=== PATIENT | female | born 1940 | race Caucasian/White ===

== ENCOUNTER 2018-05-15 08:30 | Day surgery (SDC) | payer MEDICARE, OTHER ==
[~2018-05-15] VITALS: Ht 162.6 cm; Wt 73.6 kg
[~2018-05-15 08:30] MED LIST: AMIT25; CEPH500 PO; GABA300 PO; PRED10 PO
== END 2018-05-15 11:05 | disposition home or self-care (01) ==
LOC: ORSCSDS 08:30
PROVIDERS: Internal Medicine Gastroenterology
PROC: 0DBL8ZX Excision of Transverse Colon, Via Natural or Artificial Opening Endoscopic, Diagnostic (ICD-10-PCS; principal; 2018-05-15 09:45)
PROC: 3E0H8GC Introduction of Other Therapeutic Substance into Lower GI, Via Natural or Artificial Opening Endoscopic (ICD-10-PCS; principal; 2018-05-15 09:45)
DX: Z12.11 Encounter for screening for malignant neoplasm of colon (principal); Z86.010 Personal history of colon polyps; K57.30 Diverticulosis of large intestine without perforation or abscess without bleeding; D12.3 Benign neoplasm of transverse colon; K62.1 Rectal polyp
CPT/HCPCS: J1980; J7120

== ENCOUNTER 2018-05-31 17:45 | Emergency (ER) | payer MEDICARE, OTHER ==
[~2018-05-31] VITALS: Ht 165.1 cm; Wt 74.8 kg
[2018-05-31] MEDS ORDERED: Prednisone50 MG PO (18:32)
[2018-05-31] MEDS ORDERED: EPIPEN 2-P0.3 MG/0.3 IM (18:32)
[2018-05-31] MEDS ORDERED: BENADRYL25 MG PO (18:32)
[2018-05-31] MEDS ORDERED: Pepcid20 MG PO (18:32)
== END 2018-05-31 20:41 | disposition home or self-care (01) ==
LOC: ER 17:45
DX: T63.461A Toxic effect of venom of wasps, accidental (unintentional), initial encounter (principal); Z88.2 Allergy status to sulfonamides; Z79.899 Other long term (current) drug therapy; Z79.52 Long term (current) use of systemic steroids
CPT/HCPCS: 36415; 96374; 96375; 99283-25; J1100; J1200; J3490

== ENCOUNTER 2019-11-12 08:32 | Day surgery (SDC) | payer MEDICARE, OTHER ==
[~2019-11-12] VITALS: Ht 167.6 cm; Wt 77.2 kg
[~2019-11-12 08:32] MED LIST changes: +BENADRYL25 MG PO; +CBD OIL; +DOXE10; +EPIPEN 2-P0.3 MG/0.3 IM; +FISH OIL 500 M1 EAC1; +Pepcid20 MG PO; +Prednisone50 MG PO; +TUMERIC; +VITAMIN D310 MC1
== END 2019-11-12 11:09 | disposition home or self-care (01) ==
LOC: ORSCSDS 08:32
PROVIDERS: Internal Medicine Gastroenterology
PROC: 0DBK8ZX Excision of Ascending Colon, Via Natural or Artificial Opening Endoscopic, Diagnostic (ICD-10-PCS; principal; 2019-11-12 09:45)
PROC: 0DBL8ZX Excision of Transverse Colon, Via Natural or Artificial Opening Endoscopic, Diagnostic (ICD-10-PCS; principal; 2019-11-12 09:45)
PROC: 0DBM8ZX Excision of Descending Colon, Via Natural or Artificial Opening Endoscopic, Diagnostic (ICD-10-PCS; principal; 2019-11-12 09:45)
PROC: 0DBN8ZX Excision of Sigmoid Colon, Via Natural or Artificial Opening Endoscopic, Diagnostic (ICD-10-PCS; principal; 2019-11-12 09:45)
DX: Z86.010 Personal history of colon polyps (principal); K57.30 Diverticulosis of large intestine without perforation or abscess without bleeding; D12.2 Benign neoplasm of ascending colon; D12.3 Benign neoplasm of transverse colon; D12.4 Benign neoplasm of descending colon; E78.5 Hyperlipidemia, unspecified; Z79.899 Other long term (current) drug therapy
CPT/HCPCS: 88305; J2704; J7120

== ENCOUNTER 2019-12-28 14:03 | Emergency (ER) | payer MEDICARE, OTHER ==
[~2019-12-28] VITALS: Ht 165.1 cm; Wt 74.8 kg
[2019-12-28 14:54] LABS: BASOPHILS ABSOLUTE AUTO 0.09 K/mm3 (0.00-0.23); BASOPHILS PERCENT AUTO 1 % (0-2); EOSINOPHILS ABSOLUTE AUTO 0.25 K/mm3 (0.00-0.68); EOSINOPHILS PERCENT AUTO 4 % (0-6); Hematocrit 39.6 % (33.0-51.0); Hemoglobin 13.1 g/dL (11.5-16.0); IMMATURE GRAN ABSOLUTE AUTO 0.02 K/mm3 (0.00-0.10); IMMATURE GRAN PERCENT AUTO 0 % (0-1); LYMPHOCYTES ABSOLUTE AUTO 2.23 K/mm3 (0.84-5.20); LYMPHOCYTES PERCENT AUTO 35 % (21-46); MONOCYTES ABSOLUTE AUTO 0.49 K/mm3 (0.16-1.47); MONOCYTES PERCENT AUTO 8 % (4-13); Mean Corpuscular HGB 28.6 pg (26.0-34.0); Mean Corpuscular HGB Conc 33.1 g/dL (31.5-36.5); Mean Corpuscular Volume 87 fL (80-100); Mean Platelet Volume 10.9 fL (9.1-12.4); NEUTROPHILS ABSOLUTE AUTO 3.33 K/mm3 (1.96-9.15); NEUTROPHILS PERCENT AUTO 52 % (41-73); Platelet Count 271 K/mm3 (150-400); RDW Coefficient Variation 14.6 % (11.7-14.2); RDW Standard Deviation 46.4 fL (35.1-46.3); Red Blood Cell Count 4.58 M/mm3 (3.80-5.20); White Blood Cell Count 6.41 K/mm3 (4.00-11.30)
[2019-12-28 15:15] LABS: Alanine Aminotransfer (ALT/SGP 29 U/L (12-78); Albumin, Blood 4.1 g/dL (3.4-5.0); Albumin/Globulin Ratio 1.1 (0.8-1.8); Alk Phos 50 U/L (50-136); Anion Gap 7 mmol/L (6-16); Aspartate Aminotrans (AST/SGOT 18 U/L (12-37); Bilirubin, Total 0.2 mg/dL (0.1-1.0); Blood Urea Nitrogen 17 mg/dL (8-24); Bun/Creatinine Ratio 22.1 (12.0-20.0); CO2, Blood 22 mmol/L (21-32); Calcium, Blood 9.1 mg/dL (8.5-10.1); Chloride, Blood 107 mmol/L (98-108); Creatinine, Blood 0.77 mg/dL (0.40-1.00); Globulin, Blood 3.8 g/dL (2.2-4.0); Glomerular Filtration Rate >60 (60-); Glucose, Blood 132 mg/dL (70-99); Potassium, Blood 4.2 mmol/L (3.5-5.5); Sodium, Blood 136 mmol/L (136-145); Total Protein, Blood 7.9 g/dL (6.4-8.2); Troponin I <0.015 ng/mL (0.000-0.040)
[2019-12-28 16:02] LABS: Source, Urine Catheter
[2019-12-28 16:05] LABS: Bilirubin, Urine Neg (Neg); Blood, Urine Neg (Neg); Glucose Qualitative, Urine Neg (Neg); Ketones, Urine Neg (Neg); Leukocyte Esterase, Urine Neg (Neg); Nitrite, Urine Neg (Neg); Protein, Urine Neg (Neg); Urobilinogen, Urine NORM (Normal); pH, Urine 6.5 (5.0-8.0)
[2019-12-28 16:21] LABS: Appearance, Urine Clear (Clear); Color, Urine Pale Yellow (P-Yellow)
== END 2019-12-28 16:44 | disposition home or self-care (01) ==
LOC: ER 14:03
PROVIDERS: Physician Assistant
DX: F41.9 Anxiety disorder, unspecified (principal); Z88.2 Allergy status to sulfonamides; Z88.8 Allergy status to other drugs, medicaments and biological substances; Z79.899 Other long term (current) drug therapy
CPT/HCPCS: 36415; 71046; 80053; 81003; 84443; 84484; 85025; 93005; 93010; 99284-25

== ENCOUNTER 2021-12-24 12:08 | Emergency (ER) | payer MEDICARE, OTHER ==
[~2021-12-24] VITALS: Ht 165.1 cm; Wt 72.6 kg
[2021-12-24] MEDS ORDERED: Voltaren100 GM TOP (15:15)
== END 2021-12-24 15:28 | disposition home or self-care (01) ==
LOC: ER 12:08
DX: M79.10 Myalgia, unspecified site (principal); Z88.2 Allergy status to sulfonamides
CPT/HCPCS: 71101; 99283-25

== ENCOUNTER 2023-06-15 15:38 | Emergency (ER) | payer MEDICARE, OTHER ==
[~2023-06-15] VITALS: Ht 167.6 cm; Wt 70.3 kg
[~2023-06-15 15:38] MED LIST changes: +BACLOFEN5 M1 PO; +Crestor20 MG PO; +FLUO10 PO; +IRBE75 PO; +PREG50 PO; +Voltaren100 GM TOP
[2023-06-15 16:25] LABS: BASOPHILS ABSOLUTE AUTO 0.07 K/mm3 (0.00-0.23); BASOPHILS PERCENT AUTO 1 % (0-2); EOSINOPHILS ABSOLUTE AUTO 0.35 K/mm3 (0.00-0.68); EOSINOPHILS PERCENT AUTO 5 % (0-6); Hematocrit 35.2 % (33.0-51.0); Hemoglobin 11.7 g/dL (11.5-16.0); IMMATURE GRAN ABSOLUTE AUTO 0.02 K/mm3 (0.00-0.10); IMMATURE GRAN PERCENT AUTO 0 % (0-1); LYMPHOCYTES PERCENT AUTO 26 % (21-46); MONOCYTES ABSOLUTE AUTO 0.52 K/mm3 (0.16-1.47); MONOCYTES PERCENT AUTO 7 % (4-13); Mean Corpuscular HGB 27.2 pg (26.0-34.0); Mean Corpuscular HGB Conc 33.2 g/dL (31.5-36.5); Mean Corpuscular Volume 82 fL (80-100); Mean Platelet Volume 11.5 fL (9.1-12.4); NEUTROPHILS ABSOLUTE AUTO 4.23 K/mm3 (1.96-9.15); NEUTROPHILS PERCENT AUTO 61 % (41-73); Platelet Count 254 K/mm3 (150-400); RDW Coefficient Variation 14.1 % (11.7-14.2); RDW Standard Deviation 41.5 fL (35.1-46.3); White Blood Cell Count 6.99 K/mm3 (4.00-11.30)
[2023-06-15 16:45] LABS: Albumin, Blood 3.9 g/dL (3.4-5.0); Albumin/Globulin Ratio 1.1 (0.8-1.8); Bilirubin, Total 0.6 mg/dL (0.1-1.0); Bun/Creatinine Ratio 30.1 (12.0-20.0); Calcium, Blood 8.8 mg/dL (8.5-10.1); Creatinine, Blood 1.23 mg/dL (0.40-1.00); Globulin, Blood 3.7 g/dL (2.2-4.0); Potassium, Blood 4.2 mmol/L (3.5-5.5); Total Protein, Blood 7.6 g/dL (6.4-8.2)
[2023-06-15] MEDS ORDERED: IRBE150 PO (18:36)
[2023-06-15 19:02] VITALS: BP 159/60
[2023-06-15 20:50] LABS: Source, Urine Voided
[2023-06-15 20:56] LABS: Appearance, Urine Clear (Clear); Bilirubin, Urine Neg (Neg); Blood, Urine Neg (Neg); Glucose Qualitative, Urine Neg (Neg); Ketones, Urine Neg (Neg); Leukocyte Esterase, Urine 1+ (Neg); Nitrite, Urine Neg (Neg); Protein, Urine Neg (Neg); Specific Gravity, Urine 1.015 (1.003-1.022); Urobilinogen, Urine NORM (Normal)
[2023-06-15 21:08] LABS: Color, Urine Pale Yellow (P-Yellow)
[2023-06-15 21:10] LABS: Bacteria Few /hpf; Red Blood Cells, Urine Not Seen /hpf (0-2); Squamous Epithelial Cells Rare /hpf (Few)
[2023-06-16 13:09] LABS: IRON BIND.CAP.(TIBC) 287 ug/dL (250-450); IRON SATURATION 25 % (15-55); IRON, SERUM 71 ug/dL (27-139); UIBC 216 ug/dL (118-369)
== END 2023-06-15 21:40 | disposition home or self-care (01) ==
LOC: ER 15:38
PROVIDERS: Emergency Medicine; Physician Assistant
DX: R00.1 Bradycardia, unspecified (principal); Z88.2 Allergy status to sulfonamides; Z88.8 Allergy status to other drugs, medicaments and biological substances; Z79.899 Other long term (current) drug therapy
CPT/HCPCS: 80053; 81001; 83880; 84484; 85025; 93005; 93010; 99284-25

== ENCOUNTER 2024-09-18 04:38 | Day surgery (SDC) | payer MEDICARE, OTHER ==
[~2024-09-18 04:38] MED LIST changes: +Acetaminophen 325 MG TABLET PO SCH; +Dexamethasone Sod Phos 10 MG/ML 1ML VIAL IV SCH; +DiphenhydrAMINE HCL 25 MG Cap PO SCH; +DiphenhydrAMINE HCl 50 MG/ML 1ML Vial IV PRN; +IMMUN GLOB G(IGG)/PRO/IGA 0-50 100 ML IV SCH; +IRBE150 PO; +MethylPREDNISolone Sod Succ 125 MG Vial IV SCH
[2024-09-18 14:32] VITALS: BP 110/61
[2024-09-18] MEDS ORDERED: MIRTAZAPINE7.5 M1 PO (14:56)
[2024-09-18 15:15] LABS: BASOPHILS ABSOLUTE AUTO 0.07 K/mm3 (0.00-0.23); BASOPHILS PERCENT AUTO 1 % (0-2); EOSINOPHILS ABSOLUTE AUTO 0.12 K/mm3 (0.00-0.68); EOSINOPHILS PERCENT AUTO 2 % (0-6); Hematocrit 35.4 % (33.0-51.0); Hemoglobin 12.3 g/dL (11.5-16.0); IMMATURE GRAN ABSOLUTE AUTO 0.02 K/mm3 (0.00-0.10); IMMATURE GRAN PERCENT AUTO 0 % (0-1); LYMPHOCYTES ABSOLUTE AUTO 1.76 K/mm3 (0.84-5.20); LYMPHOCYTES PERCENT AUTO 24 % (21-46); MONOCYTES ABSOLUTE AUTO 0.69 K/mm3 (0.16-1.47); MONOCYTES PERCENT AUTO 9 % (4-13); Mean Corpuscular HGB 28.2 pg (26.0-34.0); Mean Corpuscular HGB Conc 34.7 g/dL (31.5-36.5); Mean Corpuscular Volume 81 fL (80-100); Mean Platelet Volume 10.7 fL (9.1-12.4); NEUTROPHILS ABSOLUTE AUTO 4.71 K/mm3 (1.96-9.15); NEUTROPHILS PERCENT AUTO 64 % (41-73); Platelet Count 299 K/mm3 (150-400); RDW Coefficient Variation 13.9 % (11.7-14.2); RDW Standard Deviation 40.9 fL (35.1-46.3); Red Blood Cell Count 4.36 M/mm3 (3.80-5.20); White Blood Cell Count 7.37 K/mm3 (4.00-11.30)
[2024-09-18 15:40] LABS: Creatinine, Blood 0.87 mg/dL (0.40-1.00)
[2024-09-18 15:46] VITALS: BP 130/90
[2024-09-18 16:08] VITALS: BP 153/78
[2024-09-18 16:43] VITALS: BP 132/84
[2024-09-18 17:02] VITALS: BP 141/86
[2024-09-18 17:15] VITALS: BP 153/85
[2024-09-20 01:25] LABS: IMMUNOGLOBULIN G 760 mg/dL (768-1632)
== END 2024-09-18 17:37 | disposition home or self-care (01) ==
LOC: ATC 04:38
PROVIDERS: Psychiatry & Neurology Neurology
DX: G61.81 Chronic inflammatory demyelinating polyneuritis (principal)
CPT/HCPCS: 82565; 82784; 84520; 85025; 86880; 96365; 96366; 96375; 96415; A9270; J1100; J1459

== ENCOUNTER 2024-09-19 01:01 | Day surgery (SDC) | payer MEDICARE, OTHER ==
[~2024-09-19] VITALS: Wt 61.0 kg
[~2024-09-19 01:01] MED LIST changes: -Acetaminophen 325 MG TABLET PO SCH; -Dexamethasone Sod Phos 10 MG/ML 1ML VIAL IV SCH; -DiphenhydrAMINE HCL 25 MG Cap PO SCH; -DiphenhydrAMINE HCl 50 MG/ML 1ML Vial IV PRN; -IMMUN GLOB G(IGG)/PRO/IGA 0-50 100 ML IV SCH; +MIRTAZAPINE7.5 M1 PO; -MethylPREDNISolone Sod Succ 125 MG Vial IV SCH
[2024-09-19] MEDS ORDERED: IMMUN GLOB G(IGG)/PRO/IGA 0-50 100 ML IV SCH (06:00)
[2024-09-19] MEDS ORDERED: DiphenhydrAMINE HCL 25 MG Cap PO SCH (07:10)
[2024-09-19] MEDS ORDERED: Acetaminophen 325 MG TABLET PO SCH (07:10)
[2024-09-19] MEDS ORDERED: Dexamethasone Sod Phos 10 MG/ML 1ML VIAL IV SCH (07:20)
[2024-09-19 14:40] VITALS: BP 115/67
[2024-09-19 15:24] VITALS: BP 115/87
[2024-09-19 15:35] VITALS: BP 113/83
[2024-09-19 15:55] VITALS: BP 150/67
[2024-09-19 16:09] VITALS: BP 138/63
== END 2024-09-19 17:04 | disposition home or self-care (01) ==
LOC: ATC 01:01
DX: G61.81 Chronic inflammatory demyelinating polyneuritis (principal)
CPT/HCPCS: 96365; 96366; 96375; A9270; J1100; J1459

== ENCOUNTER 2024-09-20 03:27 | Day surgery (SDC) | payer MEDICARE, OTHER ==
[~2024-09-20 03:27] MED LIST changes: +MIRT15 PO; -MIRTAZAPINE7.5 M1 PO
[2024-09-20] MEDS ORDERED: IMMUN GLOB G(IGG)/PRO/IGA 0-50 100 ML IV SCH (06:00)
[2024-09-20] MEDS ORDERED: DiphenhydrAMINE HCL 25 MG Cap PO SCH (07:10)
[2024-09-20] MEDS ORDERED: Acetaminophen 325 MG TABLET PO SCH (07:10)
[2024-09-20] MEDS ORDERED: Dexamethasone Sod Phos 10 MG/ML 1ML VIAL IV SCH (07:15)
[2024-09-20 15:59] VITALS: BP 145/78
[2024-09-20 16:46] VITALS: BP 135/81
[2024-09-20 16:53] VITALS: BP 142/87
[2024-09-20 17:02] VITALS: BP 147/78
[2024-09-20 17:18] VITALS: BP 137/82
== END 2024-09-20 17:58 | disposition home or self-care (01) ==
LOC: ATC 03:27
DX: G61.81 Chronic inflammatory demyelinating polyneuritis (principal); Z91.030 Bee allergy status; Z88.2 Allergy status to sulfonamides; Z88.8 Allergy status to other drugs, medicaments and biological substances
CPT/HCPCS: 96365; A9270; J1100; J1459

== ENCOUNTER 2024-09-21 02:57 | Day surgery (SDC) | payer MEDICARE, OTHER ==
[~2024-09-21 02:57] MED LIST changes: -MIRT15 PO; +MIRTAZAPINE7.5 M1 PO
[2024-09-21] MEDS ORDERED: IMMUN GLOB G(IGG)/PRO/IGA 0-50 100 ML IV SCH (06:00)
[2024-09-21] MEDS ORDERED: Acetaminophen 325 MG TABLET PO SCH (07:20)
[2024-09-21] MEDS ORDERED: DiphenhydrAMINE HCL 25 MG Cap PO SCH (07:20)
[2024-09-21] MEDS ORDERED: Dexamethasone Sod Phos 10 MG/ML 1ML VIAL IV SCH (07:25)
[2024-09-21 15:15] VITALS: BP 155/71
[2024-09-21 15:59] VITALS: BP 126/93
[2024-09-21 16:14] VITALS: BP 110/93
[2024-09-21 16:31] VITALS: BP 158/78
[2024-09-21 16:48] VITALS: BP 167/93
[2024-09-21 17:01] VITALS: BP 164/100
== END 2024-09-21 17:20 | disposition home or self-care (01) ==
LOC: ATC 02:57
DX: G61.81 Chronic inflammatory demyelinating polyneuritis (principal)
CPT/HCPCS: 96365; 96366; 96375; A9270; J1100; J1459

== ENCOUNTER 2024-09-22 00:11 | Day surgery (SDC) | payer MEDICARE, OTHER ==
[2024-09-22] MEDS ORDERED: IMMUN GLOB G(IGG)/PRO/IGA 0-50 100 ML IV SCH (06:00)
[2024-09-22] MEDS ORDERED: Acetaminophen 325 MG TABLET PO SCH (11:00)
[2024-09-22] MEDS ORDERED: Dexamethasone Sod Phos 10 MG/ML 1ML VIAL IV SCH (11:00)
[2024-09-22] MEDS ORDERED: DiphenhydrAMINE HCl 50 MG/ML 1ML Vial IV SCH (11:00)
[2024-09-22] MEDS ORDERED: DiphenhydrAMINE HCL 25 MG Cap PO SCH (13:30)
[2024-09-22 14:18] VITALS: BP 153/87
[2024-09-22 14:53] VITALS: BP 153/85
[2024-09-22 15:11] VITALS: BP 135/86
[2024-09-22 15:29] VITALS: BP 154/86
[2024-09-22 15:49] VITALS: BP 156/91
[2024-09-22 16:10] VITALS: BP 155/87
== END 2024-09-22 16:30 | disposition home or self-care (01) ==
LOC: ATC 00:11
DX: G61.81 Chronic inflammatory demyelinating polyneuritis (principal)
CPT/HCPCS: 96365; 96366; 96374; A9270; J1100; J1459

== ENCOUNTER 2024-09-25 16:38 | Inpatient (IN) | payer MEDICARE, OTHER ==
[~2024-09-25] VITALS: Ht 162.6 cm; Wt 61.2 kg
[2024-09-25 18:11] LABS: BASOPHILS ABSOLUTE AUTO 0.06 K/mm3 (0.00-0.23); BASOPHILS PERCENT AUTO 1 % (0-2); EOSINOPHILS ABSOLUTE AUTO 0.08 K/mm3 (0.00-0.68); EOSINOPHILS PERCENT AUTO 1 % (0-6); Hematocrit 38.1 % (33.0-51.0); Hemoglobin 13.1 g/dL (11.5-16.0); IMMATURE GRAN ABSOLUTE AUTO 0.02 K/mm3 (0.00-0.10); IMMATURE GRAN PERCENT AUTO 0 % (0-1); LYMPHOCYTES ABSOLUTE AUTO 2.07 K/mm3 (0.84-5.20); LYMPHOCYTES PERCENT AUTO 22 % (21-46); MONOCYTES ABSOLUTE AUTO 0.87 K/mm3 (0.16-1.47); MONOCYTES PERCENT AUTO 9 % (4-13); Mean Corpuscular HGB 28.3 pg (26.0-34.0); Mean Corpuscular HGB Conc 34.4 g/dL (31.5-36.5); Mean Corpuscular Volume 82 fL (80-100); Mean Platelet Volume 10.6 fL (9.1-12.4); NEUTROPHILS ABSOLUTE AUTO 6.48 K/mm3 (1.96-9.15); NEUTROPHILS PERCENT AUTO 68 % (41-73); Platelet Count 243 K/mm3 (150-400); RDW Coefficient Variation 14.3 % (11.7-14.2); RDW Standard Deviation 41.5 fL (35.1-46.3); Red Blood Cell Count 4.63 M/mm3 (3.80-5.20); White Blood Cell Count 9.58 K/mm3 (4.00-11.30)
[2024-09-25 18:31] LABS: Albumin, Blood 3.6 g/dL (3.4-5.0); Albumin/Globulin Ratio 0.7 (0.8-1.8); Bilirubin, Total 0.8 mg/dL (0.1-1.0); Bun/Creatinine Ratio 64.9 (12.0-20.0); Calcium, Blood 8.7 mg/dL (8.5-10.1); Creatinine, Blood 0.77 mg/dL (0.40-1.00); Globulin, Blood 5.5 g/dL (2.2-4.0); Magnesium, Blood 1.9 mg/dL (1.6-2.4); Potassium, Blood 4.3 mmol/L (3.5-5.5); Total Protein, Blood 9.1 g/dL (6.4-8.2)
[2024-09-25 21:15] LABS: Source, Urine Clean Catch
[2024-09-25 21:27] LABS: Appearance, Urine Clear (Clear); Bilirubin, Urine Neg (Neg); Blood, Urine Neg (Neg); Color, Urine Yellow (P-Yellow); Glucose Qualitative, Urine Neg (Neg); Ketones, Urine Neg (Neg); Leukocyte Esterase, Urine Neg (Neg); Nitrite, Urine Neg (Neg); Protein, Urine 1+ (Neg); Specific Gravity, Urine 1.025 (1.003-1.022); Urobilinogen, Urine NORM (Normal)
[2024-09-25] MEDS ORDERED: NS 1,000 ML IV SCH (21:40)
[2024-09-25 22:28] LABS: Influenza A, PCR NEGATIVE (NEGATIVE); Influenza B, PCR NEGATIVE (NEGATIVE); Resp Syncytial Virus, PCR NEGATIVE (NEGATIVE); SARS-Cov-2 (COVID-19) PCR, MMC NEGATIVE (NEGATIVE)
[2024-09-25] MEDS ORDERED: FLU VACC TS2024-25(6MOS UP)/PF 45 MCG/0.5 ML SYRINGE IM ONE (23:20)
[2024-09-25] MEDS ORDERED: Ondansetron HCl 2 MG / ML 2ML Vial IV PRN (23:20)
[2024-09-25] MEDS ORDERED: Acetaminophen 325 MG TABLET PO PRN (23:20)
[2024-09-25] MEDS ORDERED: Mirtazapine 15 MG SoluTab PO SCH (23:25)
[2024-09-26] MEDS ORDERED: PREG25 PO (00:08)
[2024-09-26] MEDS ORDERED: ROSUVASTATIN CA20 MG PO (00:09)
[2024-09-26] MEDS ORDERED: AMLO5 PO (00:09)
[2024-09-26] MEDS ORDERED: AMITRIPTYLINE H25 MG PO (00:10)
[2024-09-26 00:33] VITALS: BP 154/98
[2024-09-26 02:23] LABS: BASOPHILS ABSOLUTE AUTO 0.06 K/mm3 (0.00-0.23); BASOPHILS PERCENT AUTO 1 % (0-2); EOSINOPHILS ABSOLUTE AUTO 0.11 K/mm3 (0.00-0.68); EOSINOPHILS PERCENT AUTO 1 % (0-6); Hematocrit 36.8 % (33.0-51.0); Hemoglobin 12.3 g/dL (11.5-16.0); IMMATURE GRAN ABSOLUTE AUTO 0.08 K/mm3 (0.00-0.10); IMMATURE GRAN PERCENT AUTO 1 % (0-1); LYMPHOCYTES ABSOLUTE AUTO 2.54 K/mm3 (0.84-5.20); LYMPHOCYTES PERCENT AUTO 25 % (21-46); MONOCYTES ABSOLUTE AUTO 1.08 K/mm3 (0.16-1.47); MONOCYTES PERCENT AUTO 10 % (4-13); Mean Corpuscular HGB Conc 33.4 g/dL (31.5-36.5); Mean Corpuscular Volume 84 fL (80-100); Mean Platelet Volume 10.5 fL (9.1-12.4); NEUTROPHILS ABSOLUTE AUTO 6.51 K/mm3 (1.96-9.15); NEUTROPHILS PERCENT AUTO 63 % (41-73); Platelet Count 202 K/mm3 (150-400); RDW Coefficient Variation 14.1 % (11.7-14.2); RDW Standard Deviation 42.5 fL (35.1-46.3); Red Blood Cell Count 4.39 M/mm3 (3.80-5.20); White Blood Cell Count 10.38 K/mm3 (4.00-11.30)
[2024-09-26 02:52] LABS: Albumin, Blood 3.1 g/dL (3.4-5.0); Albumin/Globulin Ratio 0.6 (0.8-1.8); Bilirubin, Total 0.7 mg/dL (0.1-1.0); Bun/Creatinine Ratio 67.1 (12.0-20.0); Calcium, Blood 8.5 mg/dL (8.5-10.1); Creatinine, Blood 0.64 mg/dL (0.40-1.00); Globulin, Blood 4.8 g/dL (2.2-4.0); Magnesium, Blood 1.6 mg/dL (1.6-2.4); Potassium, Blood 3.9 mmol/L (3.5-5.5); Total Protein, Blood 7.9 g/dL (6.4-8.2)
--- NOTE | 2024-09-26 05:27 | NUR ---
SHIFT SUMMARY 84 YR F ADMITTED ON 09/26/24. DNR. WHEN PT ARRIVED TO THIS UNIT HER CODE STATUS WAS LISTED FULL CODE. HOWEVER, SHE WAS ACOOMPANIED BY HER AND DAUGHTER WHO BOTH STATED TO MYSELF, AND THE HOSPITALIST, THAT THE PT IS A DNR AND THEY HAVE A POLST AND ADVANCED DIRECTIVE BUT DID NOT HAVE THEM WITH THEM. HOSPITALIST STATED THAT THE RECORDS WOULD BE REQUESTED TODAY. PT CODE STATUS WAS CHANGED TO DNR IN OUR SYSTEM. PT IS VERY WEAK AND CONFUSED. PT STATES SHE HAS BEEN GETTING PROGRESSIVELY WEAKER OVER THE LAST YEAR. HE ALSO STATED THAT HE IS HAVING A VERY DIFFICULT TIME CARING FOR HER HIMSELF AND WOULD PREFER THAT SHE BE DISCHARGED TO SN[facility] THAN HOME SO THAT SHE CAN WORK WITH THERAPY TO GET STRONGER. PT STATES SHE IS TOO WEAK TO WALK BUT SHE HAS ATTEMPTED TO GET OUT OF BED ON HER OWN TWICE. BED ALARM IS ON FOR PT SAFETY. PT HAS A PUREWIK FOR INCONTINENCE AND TO AVOID GETTING HER UP AT THIS POINT.
[2024-09-26] MEDS ORDERED: OxyCODONE 5 mg/Acetamin 325 mg TABLET PO PRN (07:55)
[2024-09-26 07:58] VITALS: BP 155/77
[2024-09-26] MEDS ORDERED: Enoxaparin 40 MG/0.4 ML SYR SC SCH (09:00)
[2024-09-26] MEDS ORDERED: Apixaban 5 MG Tab PO SCH (15:00)
[2024-09-26] MEDS ORDERED: MULTI-VITAMIN1 EAC2 PO (16:47)
[2024-09-26] MEDS ORDERED: MAGNESIUM OXID500 MG PO (16:48)
[2024-09-26] MEDS ORDERED: THERA-D2000 UNIT PO (16:48)
--- NOTE | 2024-09-26 18:30 | NUR ---
SHIFT SUMMARY PATIENT ALERT AND INTERACTIVE BUT FLAT AND WITHDRAWN. PATIENT CONFUSED AND FORGETFUL BUT COOPERATIVE WITH CARE. PT AND OT EVALUATED PATIENT. PATIENT HAS WEAKNESS ON L SIDE BUT IS NOT NEW. PATIENT ABLE TO GET UP TO BSC WITH ONE PERSON ASSIST. RECORDS REQUEST COMPLETED.
[2024-09-26 20:01] VITALS: BP 127/90
[2024-09-26] MEDS ORDERED: Irbesartan 150 MG Tab PO SCH (21:00)
[2024-09-27 02:18] VITALS: BP 147/74
[2024-09-27 05:40] LABS: BASOPHILS ABSOLUTE AUTO 0.04 K/mm3 (0.00-0.23); BASOPHILS PERCENT AUTO 1 % (0-2); EOSINOPHILS ABSOLUTE AUTO 0.24 K/mm3 (0.00-0.68); EOSINOPHILS PERCENT AUTO 3 % (0-6); Hematocrit 36.5 % (33.0-51.0); Hemoglobin 12.2 g/dL (11.5-16.0); IMMATURE GRAN ABSOLUTE AUTO 0.02 K/mm3 (0.00-0.10); IMMATURE GRAN PERCENT AUTO 0 % (0-1); LYMPHOCYTES ABSOLUTE AUTO 2.29 K/mm3 (0.84-5.20); LYMPHOCYTES PERCENT AUTO 29 % (21-46); MONOCYTES ABSOLUTE AUTO 0.83 K/mm3 (0.16-1.47); MONOCYTES PERCENT AUTO 11 % (4-13); Mean Corpuscular HGB 27.9 pg (26.0-34.0); Mean Corpuscular HGB Conc 33.4 g/dL (31.5-36.5); Mean Corpuscular Volume 84 fL (80-100); Mean Platelet Volume 10.7 fL (9.1-12.4); NEUTROPHILS ABSOLUTE AUTO 4.42 K/mm3 (1.96-9.15); NEUTROPHILS PERCENT AUTO 56 % (41-73); Platelet Count 193 K/mm3 (150-400); RDW Standard Deviation 42.1 fL (35.1-46.3); Red Blood Cell Count 4.37 M/mm3 (3.80-5.20); White Blood Cell Count 7.84 K/mm3 (4.00-11.30)
[2024-09-27 06:14] LABS: Albumin, Blood 3.4 g/dL (3.4-5.0); Albumin/Globulin Ratio 0.7 (0.8-1.8); Bilirubin, Total 0.7 mg/dL (0.1-1.0); Bun/Creatinine Ratio 47.6 (12.0-20.0); Calcium, Blood 8.9 mg/dL (8.5-10.1); Creatinine, Blood 0.55 mg/dL (0.40-1.00); Globulin, Blood 4.9 g/dL (2.2-4.0); Potassium, Blood 3.8 mmol/L (3.5-5.5); Total Protein, Blood 8.3 g/dL (6.4-8.2)
[2024-09-27] MEDS ORDERED: Mag Sulfate 1 GM/D5% 100ML 100 ML IV STA (06:32)
--- NOTE | 2024-09-27 06:53 | NUR ---
SHIFT SUMMARY: MARGIE IS ALERT AND ORIENTED X 2-3. VSS, NO ACUTE EVENTS THIS SHIFT. PT RESTED FOR A FEW, SHORT PERIODS THIS SHIFT. SHE IS TOLERATING PO INTAKE WELL, REPORTS FEELING UNCOMFORTABLE, BUT DENIES PAIN. SHE IS A ONE-PERSON ASSIST TO THE BSC WITH THE FWW AND GAIT BELT. TELE IN PLACE, NO EVENTS OVERNIGHT. IV TO BILATERAL ARMS PATENT. PT HAS SAT UP AT THE SIDE OF THE BED FREQUENTLY THIS SHIFT AND IS CURRENTLY. CALL LIGHT IN REACH, BED ALARM ON, BED IN LOWEST POSITION. WILL GIVE REPORT TO DAY SHIFT RN.
[2024-09-27] MEDS ORDERED: NS 1,000 ML IV SCH (07:00)
[2024-09-27 07:18] VITALS: BP 146/89
[2024-09-27] MEDS ORDERED: DULoxetine HCL 60 MG Capsule DR PO SCH (09:00)
[2024-09-27] MEDS ORDERED: AmLODIPine Besylate 5 MG Tab PO SCH (09:00)
[2024-09-27] MEDS ORDERED: Magnesium Oxide 400 MG Tab PO SCH (09:00)
[2024-09-27] MEDS ORDERED: Rosuvastatin Calcium 10 MG Tab PO SCH (09:00)
--- NOTE | 2024-09-27 13:39 | NUR ---
CALLED TO SET UP MEETING WITH PROVIDER AND MYSELF FOR A GOALS OF CARE CONVERSATION. LEFT VM. PC WILL CONTINUE TO FOLLOW
--- NOTE | 2024-09-27 15:47 | NUR ---
PATIENT C/O ANXIETY "PANIC" STATES THE THE PATIENT AND SHORTNESS OF BREATH. O2% STABLE AT 96% ON ROOMAIR, NO CHEST PAIN, OR COUGH. DR. RIOS NOTIFIED.
[2024-09-27] MEDS ORDERED: HydrOXYzine Pamoate 25 MG Cap PO ONE (16:00)
--- NOTE | 2024-09-27 18:27 | NUR ---
SHIFT SUMMARY: PT IS A&Ox3-4; ANXIOUS AND RESPONSES WITH " I DON'T KNOW" TO MOST QUESTIONS. PATIENT DOES REPORT ANXIETY AND OCASSIONAL SHORTNESS OF BREATH. PATIENT'S OXYGEN SATURATION LEVELS 96%; PLACED 2 L NASAL CANNUAL ON TO SEE IF IT WOULD EASE ANXIETY, BUT NO BENEFIT. PATIENT DENIES PAIN OR NAUSEA. SHE HAS A POOR APPETITE; WILL START BELTCHING AFTER ATTEMPTING TO EAT; SPIT UP SALIVA, BUT CONTINUES TO DENY NAUSEA OR GI UPSET. ANTINAUSEA MEDICATIONS OFFERED, BUT DECLINED. PEPPERMINT AND SODA WATER PROVIDED; PATIENT STATES SODA WATER HELPS. PATIENT CONTINUES TO APPEAR ANXIOUS AND NOT SURE WHAT SHE WANTS. PATIENT'S AT BEDSIDE, PATIENT IS NOT APPEARING DISTRESSED, CALL LIGHT WITHIN REACH, PLAN OF CARE ONGOING.
[2024-09-27 19:49] VITALS: BP 168/77
[2024-09-28] MEDS ORDERED: LORazepam 0.5 MG Tab PO ONE (00:55)
[2024-09-28 02:04] VITALS: BP 158/79
--- NOTE | 2024-09-28 06:12 | NUR ---
Shift Summary PT AOx2 tongiht with heavy anxiety. She is unsure of where she is and the day/month. She was easily reoriented. Attempted non-pharmalogical methods to relieve anxiety: theraputic communication and distraction. Pt was unable to relax and I called the hospitalist who ordered a one time dose of 0.5 MG Ativan. 1.5 hours later pt was able to sleep well t/o the rest of the night. Early in the shift she accidentally pulled out her IV while repositioning herself, she still has one intact IV remaining. She was 2 assist to BSC this shift d/t significant weakness and lack of balance.
[2024-09-28 07:02] VITALS: BP 139/82
[2024-09-28] MEDS ORDERED: LORazepam 0.5 MG Tab PO PRN (07:05)
[2024-09-28 09:07] LABS: BASOPHILS ABSOLUTE AUTO 0.02 K/mm3 (0.00-0.23); BASOPHILS PERCENT AUTO 0 % (0-2); EOSINOPHILS ABSOLUTE AUTO 0.11 K/mm3 (0.00-0.68); EOSINOPHILS PERCENT AUTO 2 % (0-6); Hematocrit 30.2 % (33.0-51.0); Hemoglobin 10.5 g/dL (11.5-16.0); IMMATURE GRAN ABSOLUTE AUTO 0.03 K/mm3 (0.00-0.10); IMMATURE GRAN PERCENT AUTO 0 % (0-1); LYMPHOCYTES ABSOLUTE AUTO 1.27 K/mm3 (0.84-5.20); LYMPHOCYTES PERCENT AUTO 18 % (21-46); MONOCYTES ABSOLUTE AUTO 0.52 K/mm3 (0.16-1.47); MONOCYTES PERCENT AUTO 7 % (4-13); Mean Corpuscular HGB 28.2 pg (26.0-34.0); Mean Corpuscular HGB Conc 34.8 g/dL (31.5-36.5); Mean Corpuscular Volume 81 fL (80-100); Mean Platelet Volume 10.8 fL (9.1-12.4); NEUTROPHILS ABSOLUTE AUTO 5.18 K/mm3 (1.96-9.15); NEUTROPHILS PERCENT AUTO 73 % (41-73); Platelet Count 187 K/mm3 (150-400); RDW Coefficient Variation 13.4 % (11.7-14.2); Red Blood Cell Count 3.72 M/mm3 (3.80-5.20); White Blood Cell Count 7.13 K/mm3 (4.00-11.30)
[2024-09-28 09:26] LABS: Albumin, Blood 3.1 g/dL (3.4-5.0); Albumin/Globulin Ratio 0.7 (0.8-1.8); Bilirubin, Total 0.6 mg/dL (0.1-1.0); Bun/Creatinine Ratio 43.3 (12.0-20.0); Calcium, Blood 8.2 mg/dL (8.5-10.1); Creatinine, Blood 0.51 mg/dL (0.40-1.00); Globulin, Blood 4.2 g/dL (2.2-4.0); Magnesium, Blood 1.6 mg/dL (1.6-2.4); Potassium, Blood 4.2 mmol/L (3.5-5.5); Total Protein, Blood 7.3 g/dL (6.4-8.2)
[2024-09-28 15:30] VITALS: BP 134/59
--- NOTE | 2024-09-28 16:31 | NUR ---
SHIFT SUMMARY PT A&OX3/4, COOPERATIVE WITH PROCEDURES, ABLE TO MAKE NEEDS KNOWN. EXPRESSED ANXIETY EARLY SHIFT, MEDICATED PER EMAR. THIS RN TRANSFERRED PT TO CHAIR FOR LUNCH, SHE TRANSFERRED EASILY, STAYED IN THE CHAIR FOR ABOUT 2 HOURS, HAD TO UTILIZE 2 PERSON TRANSFER BACK TO BED. TELE LINES ON PT BACK KEPT COMING OFF AND READING FALSE REPORTS, NOTIFIED VIA VOICEMAIL. PULSE OX CONSISTANT AT 93/94%. USED COMMODE FOR ELIMATION. BED IN LOWEST POSITION, CALL LIGHT WITHIN REACH.
[2024-09-28] MEDS ORDERED: NS 1,000 ML IV SCH (17:00)
--- NOTE | 2024-09-28 17:13 | NUR ---
MET DAUGHTER IN THE HALLWAY. PROVIDED THERPUTIC LISTENING. RELAYED MY ROLE IN THE HOSPITAL AND EXPRESSED THAT I WOULD BE HER THROUGH THE WEEKEND TO PROVIDE SUPPORT NEEDED.
[2024-09-28 19:37] VITALS: BP 144/57
[2024-09-29 05:07] LABS: BASOPHILS ABSOLUTE AUTO 0.02 K/mm3 (0.00-0.23); BASOPHILS PERCENT AUTO 0 % (0-2); EOSINOPHILS PERCENT AUTO 2 % (0-6); Hematocrit 29.8 % (33.0-51.0); Hemoglobin 10.6 g/dL (11.5-16.0); IMMATURE GRAN ABSOLUTE AUTO 0.03 K/mm3 (0.00-0.10); IMMATURE GRAN PERCENT AUTO 1 % (0-1); LYMPHOCYTES ABSOLUTE AUTO 1.45 K/mm3 (0.84-5.20); LYMPHOCYTES PERCENT AUTO 23 % (21-46); MONOCYTES ABSOLUTE AUTO 0.71 K/mm3 (0.16-1.47); MONOCYTES PERCENT AUTO 11 % (4-13); Mean Corpuscular HGB Conc 35.6 g/dL (31.5-36.5); Mean Corpuscular Volume 82 fL (80-100); Mean Platelet Volume 11.4 fL (9.1-12.4); NEUTROPHILS ABSOLUTE AUTO 4.11 K/mm3 (1.96-9.15); NEUTROPHILS PERCENT AUTO 64 % (41-73); Platelet Count 169 K/mm3 (150-400); RDW Coefficient Variation 13.5 % (11.7-14.2); RDW Standard Deviation 39.4 fL (35.1-46.3); Red Blood Cell Count 3.65 M/mm3 (3.80-5.20); White Blood Cell Count 6.42 K/mm3 (4.00-11.30)
[2024-09-29 05:37] LABS: Albumin, Blood 2.9 g/dL (3.4-5.0); Albumin/Globulin Ratio 0.7 (0.8-1.8); Bilirubin, Total 0.5 mg/dL (0.1-1.0); Bun/Creatinine Ratio 33.9 (12.0-20.0); Calcium, Blood 8.1 mg/dL (8.5-10.1); Creatinine, Blood 0.47 mg/dL (0.40-1.00); Potassium, Blood 3.9 mmol/L (3.5-5.5); Total Protein, Blood 6.9 g/dL (6.4-8.2)
--- NOTE | 2024-09-29 05:41 | NUR ---
Shift Summary Pt is very weak, she requires a two person heavy assist to pivot to the BSC. She is unsteady and wobbly on her feet. She started the shift with bad anxiety but her sister was in the room so she was ok. Once her sister left she was sitting on the edge of the bed moaning, very anxious. I gave 0.5 mg PO Ativan which helped her relax enough that she could sleep. She rcvd 1L of NS at 1000 d/t her low sodium. She is on tele w a paced rythm at 60 bpm. Sodium lab this AM is 123 which is lower than 125 from yesterday morning. She is AOx2, cooperative with care.
[2024-09-29] MEDS ORDERED: NS 1,000 ML IV SCH (13:10)
[2024-09-29 16:14] VITALS: BP 174/94
--- NOTE | 2024-09-29 16:39 | NUR ---
SHIFT SUMMARY PT A&OX3, COOPERATIVE, ABLE TO MAKE NEEDS KNOWN, FAMILY AT BEDSIDE. PT WAS TRANSFERRED TO RECLINER FOR BREAKFAST AND TRANSFERRED BACK TO BED AFTER USING COMMODE. SHE WAS VERY TIRED AFTER BEING OUT OF BED FOR BREAKFAST. SHE REPORTED NEEDING TO USE BEDPAN TO VOID, WAS NOT ABLE TO VOID. GRAPHIC ILLUSTRATOR PERFORMED BLADDERSCAN AND THIS RN PROCEEDED TO STRAIGHT CATH PT. ABLE TO DRAIN APPROX 1150ML. NS RUNNING AT 200ML/HR CURRENTLY, ORDERED BY MD. BED ALARM ON, BED IN LOWEST POSITION, CALL LIGHT WITHIN REACH.
[2024-09-29 19:35] VITALS: BP 135/74
[2024-09-30 04:04] VITALS: BP 150/78
--- NOTE | 2024-09-30 05:38 | NUR ---
SHIFT SUMMARY PT OX 2-3 THROUGH NIGHT. FORGETFUL AT TIMES. BLADDER SCAN DONE POST VOID X2, STRAIGHT CATH X1 FOR SCAN OF 450ML. EARLY THIS AM, ASSISTED PT TO BSC WITH [id number] ASSIST. PT ABLE TO VOID 500ML WITH POST VOID RESIDUAL OF 119ML- STRAIGHT CATH NOT DONE WITH THIS RESULT. PT CALM MOST OF NIGHT. NO PRN MEDS NEEDED. PT DOES STATE THAT SHE FEELS PROGRESSIVELY WEAKER, ESPECIALLY LEFT SIDE. ASSISTED WITH POSITION CHANGES. SKIN REMAINS INTACT. PT ENCOURAGED TO DRINK HER ELECTROLYTE DRINK, AND AVOID PLAIN WATER SECONDARY TO HYPONATREMIA. PT SLEPT LONG INTERVALS. BED ALARM ON, SIDE RAILS UP X2, CALL LIGHT WITHIN REACH.
[2024-09-30 07:47] VITALS: BP 153/73
[2024-09-30 09:18] LABS: BASOPHILS ABSOLUTE AUTO 0.04 K/mm3 (0.00-0.23); BASOPHILS PERCENT AUTO 1 % (0-2); EOSINOPHILS ABSOLUTE AUTO 0.13 K/mm3 (0.00-0.68); EOSINOPHILS PERCENT AUTO 2 % (0-6); Hematocrit 33.5 % (33.0-51.0); Hemoglobin 12.1 g/dL (11.5-16.0); IMMATURE GRAN ABSOLUTE AUTO 0.02 K/mm3 (0.00-0.10); IMMATURE GRAN PERCENT AUTO 0 % (0-1); LYMPHOCYTES ABSOLUTE AUTO 1.32 K/mm3 (0.84-5.20); LYMPHOCYTES PERCENT AUTO 20 % (21-46); MONOCYTES ABSOLUTE AUTO 0.53 K/mm3 (0.16-1.47); MONOCYTES PERCENT AUTO 8 % (4-13); Mean Corpuscular HGB 28.6 pg (26.0-34.0); Mean Corpuscular HGB Conc 36.1 g/dL (31.5-36.5); Mean Corpuscular Volume 79 fL (80-100); NEUTROPHILS ABSOLUTE AUTO 4.65 K/mm3 (1.96-9.15); NEUTROPHILS PERCENT AUTO 70 % (41-73); Platelet Count 219 K/mm3 (150-400); RDW Coefficient Variation 13.3 % (11.7-14.2); RDW Standard Deviation 37.2 fL (35.1-46.3); Red Blood Cell Count 4.23 M/mm3 (3.80-5.20); White Blood Cell Count 6.69 K/mm3 (4.00-11.30)
[2024-09-30 09:37] LABS: Bun/Creatinine Ratio 29.6 (12.0-20.0); Calcium, Blood 8.7 mg/dL (8.5-10.1); Creatinine, Blood 0.44 mg/dL (0.40-1.00); Potassium, Blood 3.9 mmol/L (3.5-5.5)
[2024-09-30] MEDS ORDERED: NS 1,000 ML IV SCH ×2 (09:50→18:30)
--- NOTE | 2024-09-30 10:09 | NUR ---
PHYSICIAN CONTACT CONTACTED DR ROLDAN REGARDING SODIUM LEVEL THIS AM AT 121. UPDATED DOC ON INTERVENTIONS FOR LOW SODIUM YESTERDAY AND LEVELS FROM YESTERDAY. ORDERED 1 LITER NS TO BE GIVEN AT 150/HR. THIS WAS DONE, FLUIDS INFUSING.
[2024-09-30] MEDS ORDERED: Sodium Chloride 1 GM TAB PO SCH (13:25)
[2024-09-30 14:31] LABS: Calcium, Blood 8.5 mg/dL (8.5-10.1); Creatinine, Blood 0.61 mg/dL (0.40-1.00); Potassium, Blood 4.5 mmol/L (3.5-5.5)
--- NOTE | 2024-09-30 14:52 | NUR ---
SHIFT SUMMARY PATIENT IN ROOM THIS SHIFT, REQUIRES 2 MAX ASSIST PIVOT TRANSFER TO BSC AND CHAIR. IN CHAIR FOR MEALS AND THROUGHOUT SHIFT. PULSE OX IN PLACE, NO OXYGEN REQUIRED THIS SHIFT. NO ATIVAN GIVEN THIS SHIFT, NO C/O ANXIETY. NS INFUSING, NA+ TABLETS STARTED. A/O X 3-4. FAMILY IN ROOM THROUGHOUT SHIFT. NOT ALWAYS ABLE TO MAKE NEEDS KNOWN. CALL LIGHT IN REACH, BED AND CHAIR ALARM ON RESPECTIVELY. BLADDER SCANS PERFORMED PER ORDER. NO NEED TO CATH OF THIS NOTE. CARES ONGOING.
[2024-09-30 15:49] VITALS: BP 124/65
[2024-09-30 18:21] LABS: Bun/Creatinine Ratio 36.5 (12.0-20.0); Calcium, Blood 8.1 mg/dL (8.5-10.1); Creatinine, Blood 0.63 mg/dL (0.40-1.00); Potassium, Blood 4.5 mmol/L (3.5-5.5)
--- NOTE | 2024-09-30 18:28 | NUR ---
PHYSICIAN CONTACT CONTACTED DR GARIBAY REGARDING SODIUM OF 120. ORDERED NS INFUSION AND NA+ TO BE GIVEN TONIGHT RATHER THAN STARTING IN AM.
[2024-09-30] MEDS ORDERED: Sodium Chloride 1 GM TAB PO ONE (18:30)
[2024-09-30 19:55] VITALS: BP 120/71
[2024-10-01 02:43] VITALS: BP 152/71
--- NOTE | 2024-10-01 05:00 | NUR ---
SHIFT SUMMARY PT CONTINUES WITH DIFFICULTY VOIDING/ URINARY RETENTION. UNABLE TO VOID BY 2044- BLADDER SCAN AND STRAIGHT CATH DONE. JUST BEFORE 299, PT WITH LARGE INCONT. VOID, THEN VOIDED 500ML ON BEDPAN. POST VOID BLADDER SCAN WAS 643ML. PT WAS STRAIGHT CATH'D FOR 850ML. FREE WATER RESTRICTION NOTED. PT DRINKING LIQUID IV. IVF RUNNING THROUGH THE NIGHT. TELE WITH SINUS RHYTHYM WITH SOME A-PACING. PT TURNED AND REPOSITIONED. SKIN REMAINS INTACT. LEFT SIDE REMAINS VERY WEAK. BED ALARM ON, CALL LIGHT WITHIN REACH, SIDE RAILS UP X3.
[2024-10-01 05:05] LABS: BASOPHILS ABSOLUTE AUTO 0.05 K/mm3 (0.00-0.23); BASOPHILS PERCENT AUTO 1 % (0-2); EOSINOPHILS ABSOLUTE AUTO 0.15 K/mm3 (0.00-0.68); EOSINOPHILS PERCENT AUTO 2 % (0-6); Hematocrit 32.2 % (33.0-51.0); Hemoglobin 11.4 g/dL (11.5-16.0); IMMATURE GRAN ABSOLUTE AUTO 0.02 K/mm3 (0.00-0.10); IMMATURE GRAN PERCENT AUTO 0 % (0-1); LYMPHOCYTES ABSOLUTE AUTO 1.72 K/mm3 (0.84-5.20); LYMPHOCYTES PERCENT AUTO 23 % (21-46); MONOCYTES ABSOLUTE AUTO 0.85 K/mm3 (0.16-1.47); MONOCYTES PERCENT AUTO 11 % (4-13); Mean Corpuscular HGB 28.5 pg (26.0-34.0); Mean Corpuscular HGB Conc 35.4 g/dL (31.5-36.5); Mean Corpuscular Volume 81 fL (80-100); Mean Platelet Volume 11.5 fL (9.1-12.4); NEUTROPHILS ABSOLUTE AUTO 4.66 K/mm3 (1.96-9.15); NEUTROPHILS PERCENT AUTO 63 % (41-73); Platelet Count 203 K/mm3 (150-400); RDW Coefficient Variation 13.5 % (11.7-14.2); RDW Standard Deviation 38.8 fL (35.1-46.3); White Blood Cell Count 7.45 K/mm3 (4.00-11.30)
[2024-10-01 05:27] LABS: Albumin, Blood 3.2 g/dL (3.4-5.0); Albumin/Globulin Ratio 0.8 (0.8-1.8); Bilirubin, Total 0.4 mg/dL (0.1-1.0); Bun/Creatinine Ratio 36.2 (12.0-20.0); Calcium, Blood 8.4 mg/dL (8.5-10.1); Creatinine, Blood 0.47 mg/dL (0.40-1.00); Potassium, Blood 4.1 mmol/L (3.5-5.5); Total Protein, Blood 7.2 g/dL (6.4-8.2)
[2024-10-01 07:22] VITALS: BP 125/71
[2024-10-01] MEDS ORDERED: Sodium Chloride 1 GM TAB PO SCH (08:30)
--- NOTE | 2024-10-01 09:38 | NUR ---
PATIENT ATTEMPTED TO VOID USING THE BEDPAN [REFUSED TO GET UP], ZERO OUTPUT. BLADDERSCANNED HER; 652. NURSE INFORMED.
[2024-10-01 10:13] LABS: Source, Urine Foley catheter
[2024-10-01 10:23] LABS: Appearance, Urine Hazy (Clear); Bilirubin, Urine Neg (Neg); Blood, Urine 1+ (Neg); Color, Urine Yellow (P-Yellow); Glucose Qualitative, Urine Neg (Neg); Ketones, Urine Neg (Neg); Leukocyte Esterase, Urine 3+ (Neg); Nitrite, Urine Pos (Neg); Protein, Urine Neg (Neg); Urobilinogen, Urine NORM (Normal)
[2024-10-01 11:21] LABS: White Blood Cells, Urine TNTC /hpf (0-5)
[2024-10-01 11:22] LABS: Bacteria Many /hpf; Squamous Epithelial Cells Rare /hpf (Few)
[2024-10-01] MEDS ORDERED: CefTRIAXone Sodium 1,000 MG in NS 100 ML IV SCH (13:00)
[2024-10-01 15:09] LABS: Bun/Creatinine Ratio 23.6 (12.0-20.0); Calcium, Blood 8.2 mg/dL (8.5-10.1); Creatinine, Blood 0.55 mg/dL (0.40-1.00); Potassium, Blood 4.2 mmol/L (3.5-5.5)
--- NOTE | 2024-10-01 16:12 | NUR ---
SHIFT SUMMARY PT WOKE FOR SHIFT REPORT THIS AM. RESTING QUIETLY, IVF'S INFUSING PER EMAR FOR SODIUM LEVEL. PT HAVING URINARY RETENSION, REQUIRING FREQUENT STRAIGHT CATH'S; LAST ONE DONE JUST PRIOR TO START OF SHIFT. PT UNABLE TO VOID AGAIN LATER THIS AM, BECOMING RESTLESS AND AGITATED; BLADDER SCAN DONE SHOWING [address] EDMONDSON NOTIFIED; NEW ORDERS PLACED. 10:00 LEIJA CATH [address]ACED. UA OBTAINED AND SENT PER PROTOCOL. PT NOT WANTING TO EAT MUCH AT ALL TODAY, REFUSING BREAKFAST AND LUNCH. PT DID DRINK SOME ENSURE. PT/OT BOTH IN TO SEE PT TODAY. PT UP TO CHAIR AT BS VIA 2P MAX ASSIST. PT LATER RETURNED TO BED USING LIFT AND 2P ASSIST. PT IS VERY WEAK AND DOES NOT ASSIST OR PARTICIPATE MUCH AT ALL. PT'S SISTER IN EARLY AND SOON PT'S AND DAUGHTER AT BS WELL. CHILDCARE ADMINISTRATOR IN TO TALK WITH AND THEN DR GARIBAY HERE TO TALK WITH FAMILY. PT STATING THAT SHE WANTS HOSPICE AND WOULD LIKE TO , BUT FAMILY IS INCONSISTANT IN DECISIONS. PT ON FREE WATER RESTRICTION FOR SODIUM LEVEL. REQUESTED BED GOTTI FOR BM BUT JUST PASSING FLATUS. NO C/O PAIN. RESTING QUIETLY AT THIS TIME. CALL LT IN REACH. BED ALARM ON FOR SAFETY.
[2024-10-01 16:43] VITALS: BP 118/58
[2024-10-01] MEDS ORDERED: Polyethylene Glycol 3350 17 gm PO PRN (17:50)
[2024-10-01 19:31] VITALS: BP 124/61
[2024-10-02 04:14] VITALS: BP 134/62
[2024-10-02 04:57] LABS: Hematocrit 31.7 % (33.0-51.0); Mean Corpuscular HGB 28.2 pg (26.0-34.0); Mean Corpuscular HGB Conc 34.7 g/dL (31.5-36.5); Mean Corpuscular Volume 81 fL (80-100); Platelet Count 205 K/mm3 (150-400); RDW Coefficient Variation 13.8 % (11.7-14.2); RDW Standard Deviation 39.8 fL (35.1-46.3); White Blood Cell Count 7.79 K/mm3 (4.00-11.30)
--- NOTE | 2024-10-02 05:15 | NUR ---
SHIFT SUMMARY PT WITH INCREASED ANXIETY AT BEGINNING OF SHIFT. TYLENOL, THEN ATIVAN GIVEN WITH IMPROVEMENT TO ANXIETY- SEE EMAR. FREE WATER RESTRICTION MAINTAINED. IVF CONTINUES- NS@150ML/HR. LEIJA CATHETER DRAINING LARGE AMOUNTS OF URINE- MORE THAN 3 LITERS. LAB RESULTS PENDING. BED ALARM ON, CALL LIGHT WITHIN REACH, SIDE RAILS UP X3.
[2024-10-02 05:16] LABS: Bun/Creatinine Ratio 28.9 (12.0-20.0); Calcium, Blood 8.3 mg/dL (8.5-10.1); Creatinine, Blood 0.49 mg/dL (0.40-1.00); Potassium, Blood 4.2 mmol/L (3.5-5.5)
[2024-10-02 07:21] VITALS: BP 148/74
[2024-10-02 12:35] LABS: SARS-Cov-2 (COVID-19) PCR, MMC NEGATIVE (NEGATIVE)
[2024-10-02] MEDS ORDERED: ELIQUIS5 M2 PO (13:16)
[2024-10-02] MEDS ORDERED: Crestor40 MG PO (13:18)
[2024-10-02] MEDS ORDERED: Percocet 5-3251 EACH PO (13:18)
[2024-10-02] MEDS ORDERED: Cefpodoxime Pr100 MG PO (13:19)
[2024-10-02] MEDS ORDERED: SODCHL1 PO (13:19)
--- NOTE | 2024-10-02 15:12 | NUR ---
SHIFT SUMMARY PT AWAKE AT START OF SHIFT, DURING SHIFT REPORT. PT SITTING UP TO EOB, APPEARING WEAK AND TIRED. PT WANTING BACK IN BED BEFORE BREAKFAST. PT DECLINED TO EAT BREAKFAST BUT DID DRINK ALL OF HER ENSURE. PT'S DAUGHTER HERE SHORTLY AFTER BREAKFAST, BRINGING CLOTHES AND ADDITIONAL BLANKET. PT'S TO LATER MORNING. ENGRAVER COPPERPLATE IN TO TALK WITH PT AND FAMILY. PT TO D/C TO SNF TODAY; ALL ARRANAGEMENTS MADE. [facility] THEN REQUESTING TO REASSESS PT. D/C ON HOLD TODAY UNTIL TOMORROW. PT C/O BLOATING AND PASSING GAS. PT'S DAUGHTER DECLINED MIRALAX TODAY. PT LATER HAVING BM AND FEELING BETTR. PT'S DAUGHTER REMAINS AT BS. PT NOW RESTING QUIETLY IN BED. DENIES FURTHER NEEDS. CALL LT IN REACH. BED ALARM ON FOR SAFETY.
[2024-10-02 16:49] VITALS: BP 148/95
[2024-10-02] MEDS ORDERED: Sodium Chloride 1 GM TAB PO SCH (17:00)
[2024-10-02 19:53] VITALS: BP 156/63
[2024-10-03 02:01] VITALS: BP 142/86
--- NOTE | 2024-10-03 05:52 | NUR ---
SHIFT SUMMARY PT WITH ANXIETY AND RESTLESSNESS DURING THE NIGHT. REPOSITIONED FROM LYING ON LEFT SIDE TO SITTING AT EDGE OF BED THROUGH THE NIGHT. ATIVAN GIVEN X2 DOSES- SEE EMAR- WITH SOME RELIEF. LEIJA DRAINING CLEAR YELLOW URINE, CATHETER IS POSITIONAL AT TIMES. BED ALARM ON, CALL LIGHT WITHIN REACH, SIDE RAILS UP X3.
[2024-10-03 07:56] VITALS: BP 140/87
[2024-10-03 11:12] LABS: BASOPHILS ABSOLUTE AUTO 0.07 K/mm3 (0.00-0.23); BASOPHILS PERCENT AUTO 1 % (0-2); EOSINOPHILS ABSOLUTE AUTO 0.11 K/mm3 (0.00-0.68); EOSINOPHILS PERCENT AUTO 2 % (0-6); Hematocrit 32.5 % (33.0-51.0); Hemoglobin 11.5 g/dL (11.5-16.0); IMMATURE GRAN ABSOLUTE AUTO 0.01 K/mm3 (0.00-0.10); IMMATURE GRAN PERCENT AUTO 0 % (0-1); LYMPHOCYTES ABSOLUTE AUTO 0.91 K/mm3 (0.84-5.20); LYMPHOCYTES PERCENT AUTO 16 % (21-46); MONOCYTES ABSOLUTE AUTO 0.56 K/mm3 (0.16-1.47); MONOCYTES PERCENT AUTO 10 % (4-13); Mean Corpuscular HGB 28.5 pg (26.0-34.0); Mean Corpuscular HGB Conc 35.4 g/dL (31.5-36.5); Mean Corpuscular Volume 81 fL (80-100); Mean Platelet Volume 10.7 fL (9.1-12.4); NEUTROPHILS ABSOLUTE AUTO 4.18 K/mm3 (1.96-9.15); NEUTROPHILS PERCENT AUTO 72 % (41-73); Platelet Count 220 K/mm3 (150-400); RDW Coefficient Variation 13.9 % (11.7-14.2); RDW Standard Deviation 39.8 fL (35.1-46.3); Red Blood Cell Count 4.03 M/mm3 (3.80-5.20); White Blood Cell Count 5.84 K/mm3 (4.00-11.30)
[2024-10-03 11:33] LABS: Albumin, Blood 3.3 g/dL (3.4-5.0); Albumin/Globulin Ratio 0.7 (0.8-1.8); Bilirubin, Total 0.4 mg/dL (0.1-1.0); Creatinine, Blood 0.54 mg/dL (0.40-1.00); Globulin, Blood 4.6 g/dL (2.2-4.0); Potassium, Blood 4.3 mmol/L (3.5-5.5); Total Protein, Blood 7.9 g/dL (6.4-8.2)
[2024-10-03 14:55] VITALS: BP 117/75
--- NOTE | 2024-10-03 17:28 | NUR ---
SHIFT SUMMARY PT CONT LEVEL OF CARE. PT NOTED TO BE A&O X2-3 THIS SHIFT WITH INTERMITTEN CONFUSION NOTED. DAUGHTER AND HAS BEEN AT BEDSIDE ON AND OFF THROUGHOUT THE DAY. [facility] CAME BACK THIS SHIFT TO [place] PT FOR PLACEMENT AND STATED THAT PT WOUDNT GIVE HIM A DIRECT ANSWER IF SHE WAS GOING TO WORK WITH REHAB AT THE FACILITY. BUT STATED THAT PT WOULD BE ACCEPTED IF SHE WOULD WORK WITH THERAPY WHILE THERE. PHYSICIAN IS TO DISCUSS WITH PT AND FAMILY THE OPTION OF GOING HOME ON HOSPICE IF SHE CHOOSES NOT TO GO TO [place] FOR THERAPY. PT DAUGHTER STATED TO HAVE PHYSICAN CALL HER DURING ROUNDS TOMORROW TO DISCUSS D/C PLAN AND TX PLAN.
[2024-10-03] MEDS ORDERED: Lactobacil 2-S.Thermo-Bifido 1 1 Cap PO SCH (18:00)
[2024-10-03 19:44] VITALS: BP 151/75
[2024-10-03] MEDS ORDERED: Amoxicillin/Clavulanate K 875 MG Tab PO SCH (21:00)
[2024-10-04 03:21] VITALS: BP 138/87
[2024-10-04 04:59] LABS: BASOPHILS ABSOLUTE AUTO 0.07 K/mm3 (0.00-0.23); BASOPHILS PERCENT AUTO 1 % (0-2); EOSINOPHILS ABSOLUTE AUTO 0.18 K/mm3 (0.00-0.68); EOSINOPHILS PERCENT AUTO 3 % (0-6); Hematocrit 34.2 % (33.0-51.0); Hemoglobin 12.1 g/dL (11.5-16.0); IMMATURE GRAN ABSOLUTE AUTO 0.02 K/mm3 (0.00-0.10); IMMATURE GRAN PERCENT AUTO 0 % (0-1); LYMPHOCYTES ABSOLUTE AUTO 1.56 K/mm3 (0.84-5.20); LYMPHOCYTES PERCENT AUTO 24 % (21-46); MONOCYTES ABSOLUTE AUTO 0.65 K/mm3 (0.16-1.47); MONOCYTES PERCENT AUTO 10 % (4-13); Mean Corpuscular HGB 28.7 pg (26.0-34.0); Mean Corpuscular HGB Conc 35.4 g/dL (31.5-36.5); Mean Corpuscular Volume 81 fL (80-100); Mean Platelet Volume 11.1 fL (9.1-12.4); NEUTROPHILS PERCENT AUTO 62 % (41-73); Platelet Count 231 K/mm3 (150-400); RDW Coefficient Variation 13.9 % (11.7-14.2); Red Blood Cell Count 4.22 M/mm3 (3.80-5.20); White Blood Cell Count 6.48 K/mm3 (4.00-11.30)
[2024-10-04 06:15] LABS: Albumin, Blood 3.4 g/dL (3.4-5.0); Albumin/Globulin Ratio 0.8 (0.8-1.8); Bilirubin, Total 0.5 mg/dL (0.1-1.0); Bun/Creatinine Ratio 29.8 (12.0-20.0); Creatinine, Blood 0.54 mg/dL (0.40-1.00); Globulin, Blood 4.4 g/dL (2.2-4.0); Potassium, Blood 4.1 mmol/L (3.5-5.5); Total Protein, Blood 7.8 g/dL (6.4-8.2)
[2024-10-04 07:19] VITALS: BP 150/81
--- NOTE | 2024-10-04 07:58 | NUR ---
AAOX3 WITH HX OF DEMENTIA. PACEMAKER. X1-2 ASSIST. LEIJA CATH D/T RETENTION OF URINE. 1 LITER FLUID RESTRICTIONPER 24 HR. PLAN TO SNF OR DAUGHTERS HOUSE ON HOSPICE.
[2024-10-04] MEDS ORDERED: Apixaban 5 MG Tab PO SCH (09:00)
--- NOTE | 2024-10-04 09:16 | NUR ---
DID NURSE/DOCTOR ROUNDS. PT NOTED TO TELL THE DR PRASAD THAT SHE DIDNT WANT TO DO THERAPY AND STATED THAT SHE JUST WANTED TO . THIS NURSE ASKED PHYSICIAN TO CALL AND TALK TO PT DAUGHTER SHE HAD SEVERAL QUESTION RE: DC AND TREATMENT PLAN AND DIDNT KNOW WHAT WAS GOING ON. LUBNA STATED THAT SHE WOULD CALL THE DAUGHTER.
[2024-10-04 14:43] VITALS: BP 140/80
--- NOTE | 2024-10-04 16:37 | NUR ---
MET WITH PATIENT AND DAUGHTER. WE SEVERAL VISITS THROUGHOUT THIS SHIFT. EXPLAINED WHAT HOSPICE WOULD PROVIDE. WE DISCUSSED DIFFERENT AVENUES OF CARE. DISCUSSED WITH PROVIDER AND DAUGHTER. DR. REED WILL REACH OUT TO PATIENTS PRIMARY CARE PROVIDER AND NEUROLOGY TO SEE IF HE CAN GATHER MORE INFORMATION TO HELP WITH THE DECISION MAKING PROCESS. PC WILL CONTINUE TO PROVIDE SUPPORT
--- NOTE | 2024-10-04 19:28 | NUR ---
SHIFT SUMMARY PT CONT LEVEL OF CARE WITH PLAN TO GO HOME WITH DAUGHTER ON HOSPICE. PT NOTED TO BE ANXIOUS THIS SHIFT AND WAS GIVEN PRN ATIVAN THIS SHIFT X1.
[2024-10-04 20:15] VITALS: BP 123/98
[2024-10-05 04:53] VITALS: BP 140/74
--- NOTE | 2024-10-05 04:55 | NUR ---
ADMITTED 09/25/24: ELEVATED TROP AND RULEOUT PE. AAOX2-3 WITH INTERMITTENT CONFUSION AND ANXIETY. PACEMAKER. INCT OF BM, LEIJA CATH IN PLACE D/T URINE RETENTION. IV R WRIST, SL. PIVOT TRANSFERS X1-2 ASSIST. PLAN TO DC TO [facility] ON HOSPICE.
[2024-10-05 07:41] VITALS: BP 139/90
[2024-10-05 14:56] VITALS: BP 107/63
--- NOTE | 2024-10-05 18:36 | NUR ---
SHIFT SUMMARY PT CONT LEVEL OF CARE WITH NO ACUTE CHANGES NOTED. PLAN IS FOR PT DC [facility] TUESDAY WITH H[facility]PICE. THE [facility] WILL BE HERE TO EVAL PT ON TUESDAY. PT NOTED TO BE ANXIOUS THIS SHIFT WAS GIVEN PRN ATIVAN. PT ALSO NOTED TO BE NAUSEA AND WAS GIVEN PRN ZOFRAN WITH EFFECTIVENESS. PT SON WAS HERE TO VISIST WITH PT AND PT DID STATE SHE WOULD LIKE TO SEE HIM.
[2024-10-05 19:35] VITALS: BP 128/55
--- NOTE | 2024-10-06 05:02 | NUR ---
SHIFT SUMMARY PT IS A EDUARDO 84 Y0 DNR PT. PT WAS ADMITTED FOR ELEVATED TROPONIN. PT HAS A HIST OF DEMENTIA AND WEAKNESS/FALLS. PT TAKES MEDS CRUSHED IN APPLESAUCE AND WAS GIVEN ATIVAN/OXYCODONE FOR RIB PAIN AND ANXIETY (SEE eMAR).PT HAS A LEIJA AND IS INCONT-TO BOWEL. PT HAS NOT GOTTEN OUT OF BED AND DOES NOT WANT TO. THERE IS QUESTION ON IF THE PT WILL RETURN HOME TO [facility] ON HOSPICE OR GO TO A [facility] ON HOSPICE. PALLATIVE CARE INVOLVED. PT IS ON A FREE WATER REST OF 1L. PT HAS AN IV IN R HAND. PT ANSWERS QUESTIONS SOMETIMES BUT CAN BE SOFT SPOKEN AND HARD TO UNDERSTAND AND CONFUSED AT TIMES. PT WAS VISITED BY DAUGHTER, SON AND GRAND DAUGHTER THIS EVENING. CALL LIGHT IN REACH AND BED ALARM SET.
[2024-10-06 07:39] VITALS: BP 119/71
[2024-10-06] MEDS ORDERED: Scopolamine Hydrobromide Patch TOP PRN (07:55)
[2024-10-06] MEDS ORDERED: Atropine Sulfate 1% Opth Soln 2ML BTL SL PRN (07:55)
[2024-10-06] MEDS ORDERED: Morphine Sulfate 20 MG/1ML 1 ML Oral Syringe SL PRN (07:55)
--- NOTE | 2024-10-06 17:38 | NUR ---
SHIFT SUMMARY: PT AOX2, ADDED TO COMFORT CARE. PT ATE SOME LUNCH AND THEN COMPLAINED OF INDIGESTION. ZOFRAN GIVEN PER EMR. FAMILY COMING AND GOING AT BEDSIDE. PATIENT LOOKED COMFORTABLE. REPOSITIONED REQUESTED. NO COMPLAINTS OF PAIN. FAMILY PRESENT. PT RESTING, BED IN LOWEST POSITION AND CALL LIGHT IN REACH. CONTINUING CARE.
--- NOTE | 2024-10-06 18:12 | NUR ---
THIS EMERGENCY ROOM NURSE HAS REVIEWED AND AGREES TO ALL NOTES AND ASSESSMENTS BY BRENDA SALINAS.
--- NOTE | 2024-10-07 04:23 | NUR ---
SHIFT SUMMARY: PT IS A 84 YO COMFORT CARE PT. PT TOOK MEDS FOR PAIN AND ANXIETY CRUSHED IN APPLESAUCE (SEE eMAR). PT HAS A LEIJA WITH NOT MUCH OUT PUT THIS SHIFT AND PT HAS NOT HAD MUCH INTAKE WHEN OFFERED. PT SEEMS LESS INTERACTIVE TONIGHT AND MORE SOMNOLENT. PT REPOSITIOED Q2 FOR COMFORT. I FLOATED PTS LEGS AND HEELS TONIGHT TO PREVENT WOUNDS ON HEELS. PT RESTING W/CALL LIGHT.
--- NOTE | 2024-10-07 16:47 | NUR ---
Pt appears to be resting comfortably this evening. Her sister has been here most of the day with her. Pt was evaluated by [facility] today, and will be [facility] to [facility]. Jesús has repair work being done in her home tomorrow, and [facility] was able to accomodate for Tuesday.
--- NOTE | 2024-10-07 17:44 | NUR ---
SHIFT SUMMARY: PT AOX2 ORIENTED TO SELF AND FAMILY IN THE ROOM. PT FAMILY RECOGNIZED SOME SIGNS OF ANXIETY AND PAIN. MEDICATED PER EMR. PT GIVEN BATH AND HAD A SMALL BM. CLEANED AND NO SKIN ABNORMALITIES NOTICED. PT TOLERATING MEDS CRUSHED IN APPLESAUCE AND HAS EVEN LIFTED DRINKS TO HER FACE TO DRINK WITH A STRAW ON HER OWN POWER. TOLERATED BED BATH AND CLEANING WELL. STATES THAT SHE FEELS MUCH BETTER. FAMILY AT BEDSIDE WHILE PATIENT RESTS. BED IN LOWEST POSITION AND CALL LIGHT IN REACH. CONTINUING CARE.
[2024-10-07] MEDS ORDERED: Simethicone 80 MG Chew PO PRN (20:35)
--- NOTE | 2024-10-08 06:24 | NUR ---
SHIFT SUMMARY: "DAREK" IS A&OX2. SHE HAS RESTED QUIETLY IN BED FOR THE MAJORITY OF THE SHIFT, RESTED WITH HER EYES CLOSED MINIMALLY. LEIJA PATENT, DRAINING TO COLLECTION BAG HANGING ABOVE FLOOR. SHE REPORTED PAIN AT THE BEGINNING OF THE SHIFT FOR WHICH SHE WAS MEDICATED PER MAR AND HAS DENIED PAIN FOR THE REST OF THE SHIFT. PT HAD A BOWEL MOVEMENT AT THE BEGINNING OF THE SHIFT DURING WHICH SHE REPORTED PAIN, RESOLVED AFTER BM COMPLETE. SHE HAS BEEN TURNED AND REPOSITIONED FREQUENTLY AND IS ABLE TO TURN AND REPOSITION HERSELF. SHE IS LYING IN BED WITH THE CALL LIGHT IN REACH, BED IN LOWEST POSITION WITH ALARM ON. WILL GIVE REPORT TO DAY SHIFT RN.
--- NOTE | 2024-10-08 18:16 | NUR ---
SHIFT SUMMARY PT A&O TO SELF AND PLACE. PT ON COMFORT MEASURES, MEDICATED SCHEDULED AND PRN PER EMAR. PT COMPLAINS OF GAS, MEDICATED PER EMAR. PT ATTEMPTED BM, NO BM PRODUCED ON THIS SHIFT. PT FAMILY AT BEDSIDE. TALKING ABOUT POSSIBLY D/CING [place] TO HOSPICE. NO ACUTE EVENTS DURING SHIFT. REPOSITIONED Q2HRS, FALL PRECAUTIONS IN PLACE, CALL LIGHT IN REACH.
--- NOTE | 2024-10-09 04:53 | NUR ---
SHIFT SUMMARY: "DAREK" AROUSES EASILY AND RESPONDS APPROPRIATELY. SHE HAS RESTED QUIETLY WITH HER EYES CLOSED PERIODICALLY THIS SHIFT AND REPORTS SHE HAS BEEN SLEEPING INTERMITTENTLY. SHE REPORTED PAIN EARLIER THIS SHIFT AND WAS MEDICATED PER JAN, BUT HAS DENIED PAIN FOR THE REMAINDER OF THE SHIFT. SHE TOLERATED PO INTAKE WELL AT THE BEGINNING OF THE SHIFT, HAS REFUSED PO INTAKE THE REST OF THE SHIFT. LEIJA PATENT, COLLECTION BAG HANGING ABOVE THE FLOOR. ATTENDS CHANGED PRN, PT TURNED AND REPOSITIONED Q2. SHE IS ABLE TO TURN AND REPOSITION HERSELF AT WILL. SHE IS LYING IN BED WITH THE CALL LIGHT IN REACH, BED IN LOWEST POSITION AND BED ALARM ON FOR SAFETY. PT HAS NOT BEEN IMPULSIVE THIS SHIFT. WILL GIVE REPORT TO DAY SHIFT RN.
[2024-10-09] MEDS ORDERED: DULO60 PO (13:36)
[2024-10-09] MEDS ORDERED: ATROPINE SULFATE2 M1 SL (13:36)
[2024-10-09] MEDS ORDERED: LORA.5 PO (13:38)
[2024-10-09] MEDS ORDERED: MORP20L SL (13:43)
[2024-10-09] MEDS ORDERED: MIRALAX17 GM PO (13:45)
[2024-10-09] MEDS ORDERED: TRANSDERM-SCOP1 EA13 TD (13:47)
[2024-10-09] MEDS ORDERED: SIME80CH PO (13:48)
--- NOTE | 2024-10-09 14:50 | NUR ---
DISCHARGE NOTE PT TO BE DISCHARGED ON HOSPICE TODAY. PT FAMILY IN ROOM. MEDICATED SCHEULED AND PRN PER EMAR. NO COMPLAINTS OF CP/PRESSURE OR SOB. PT A&O TO SELF AND IS CONFUSED BUT COOPERATIVE. PT HARD SCRIPTS GIVEN TO DAUGHTER AND MEDICATIONS SENT TO [facility]. PT WAS DISCHARGED VIA W/C TRANSPORT AT 1410. ALL BELONGINGS OUT OF ROOM
== END 2024-10-09 14:25 | disposition hospice, home (50) | DRG 281 ==
LOC: ER 16:38 → MEDS 16:39 → ENPENDDIS 10-09 14:03 → MEDS 10-09 14:25
PROVIDERS: Emergency Medicine; Family Medicine; Internal Medicine; Physician Assistant; Student in an Organized Health Care Education/Training Program; ADMIT Student in an Organized Health Care Education/Training Program
DX: I82.413 Acute embolism and thrombosis of femoral vein, bilateral (principal); C81.9A Hodgkin lymphoma, unspecified, in remission; I21.A1 Myocardial infarction type 2; E87.1 Hypo-osmolality and hyponatremia; G61.81 Chronic inflammatory demyelinating polyneuritis; Z66 Do not resuscitate; Z51.5 Encounter for palliative care; J98.11 Atelectasis; F03.94 Unspecified dementia, unspecified severity, with anxiety; N39.0 Urinary tract infection, site not specified; R00.0 Tachycardia, unspecified; I82.433 Acute embolism and thrombosis of popliteal vein, bilateral; I82.443 Acute embolism and thrombosis of tibial vein, bilateral; Z28.9 Immunization not carried out for unspecified reason; I12.9 Hypertensive chronic kidney disease with stage 1 through stage 4 chronic kidney disease, or unspecified chronic kidney disease; N18.2 Chronic kidney disease, stage 2 (mild); G47.00 Insomnia, unspecified; G62.9 Polyneuropathy, unspecified; Z98.890 Other specified postprocedural states; F03.90 Unspecified dementia, unspecified severity, without behavioral disturbance, psychotic disturbance, mood disturbance, and anxiety; M19.90 Unspecified osteoarthritis, unspecified site; F32.A Depression, unspecified; E78.5 Hyperlipidemia, unspecified; L40.9 Psoriasis, unspecified; N32.89 Other specified disorders of bladder; R91.1 Solitary pulmonary nodule; R33.9 Retention of urine, unspecified; Z88.2 Allergy status to sulfonamides; Z88.8 Allergy status to other drugs, medicaments and biological substances; Z79.899 Other long term (current) drug therapy; Z95.0 Presence of cardiac pacemaker
CPT/HCPCS: 0241U; 36415; 51701; 51798; 71045; 71275; 80048; 80053; 81001; 83735; 83880; 84484; 85025; 85027; 85379; 87077; 87086; 87186; 93005; 93010; 93306; 93970; 94760; 94762; 96360-59; 96361-59; 97110; 97161; 97165; 97530; 97535; 99285-25; A9270; G0378; J0696; J1650; J2405; J3475; J7030; Q0177; Q9967; U0002